=== PATIENT | female | born 1940 | race Caucasian/White ===

== ENCOUNTER 2018-12-29 05:34 | Inpatient (IN) ==
[~2018-12-29 05:34] MED LIST: GABAPENTIN 400 MG CAPSULE PO ONE
[2018-12-29] MEDS ORDERED: FAMOTIDINE 20 MG TABLET ONE (05:54)
[2018-12-29] MEDS ORDERED: VANCOMYCIN 1,000 MG VIAL ONE (05:54)
[2018-12-29] MEDS ORDERED: ACETAMINOPHEN 500 MG TABLET ONE (05:54)
[2018-12-29] MEDS ORDERED: GABAPENTIN 400 MG CAPSULE ONE (05:54)
[2018-12-29] MEDS ORDERED: ceFAZolin 1,000 MG VIAL ONE (05:54)
[2018-12-29] MEDS ORDERED: FAMOTIDINE 20 MG TABLET PO ONE (06:00)
[2018-12-29] MEDS ORDERED: GABAPENTIN 400 MG CAPSULE PO ONE (06:00)
[2018-12-29] MEDS ORDERED: ACETAMINOPHEN 500 MG TABLET PO ONE ×2 (06:00)
[2018-12-29] MEDS ORDERED: ROPIVACAINE 0.5% 30 ML VIAL ONE (06:33)
[2018-12-29] MEDS ORDERED: DEXAMETHASONE 4 MG/1 ML VIAL ONE (06:33)
[2018-12-29 06:35] LABS: Apearance,Urine CLEAR (Clear); Bacteria,Urine Occasional /HPF (Few); Bilirubin,Urine Negative (Negative); Blood, Urine Moderate mg/dL (Negative); Glucose,Urine (UA) Negative (Negative); Ketones,Urine Negative (Negative); Mucus,Urine Few /LPF (Occasional); Nitrite,Urine Negative (Negative); Protein,Urine Negative; RBC,Urine 1 /HPF (0-4); Urine Color Yellow (Yellow); Urine Specific Gravity 1.023 (1.001-1.035); Urine Urobilinogen < 2.0 EU/DL (0.2-1.0); WBC,Urine <1 /HPF (0-6)
[2018-12-29] MEDS ORDERED: LACTATED RINGERS 1,000 ML IV SCH (07:00)
[2018-12-29] MEDS ORDERED: NEOMYCIN/POLYMYXIN/BACITRACIN OINT 28.4 GM TUBE TOP ONE (07:33)
[2018-12-29] MEDS ORDERED: BUPIVACAINE SPINAL 0.75% 2 ML AMP SPINAL ONE (08:43)
[2018-12-29] MEDS ORDERED: PHENYLEPHRINE 1 MG/10 ML SYRINGE IV ONE (08:43)
[2018-12-29] MEDS ORDERED: PROPOFOL 200 MG/20 ML VIAL IV ONE (08:43)
[2018-12-29] MEDS ORDERED: TRANEXAMIC ACID 1,000 MG/10 ML VIAL ONE (08:43)
[2018-12-29] MEDS ORDERED: SODIUM CHLORIDE 0.9% 100 ML IV ONE (08:44)
[2018-12-29] MEDS ORDERED: Lansoprazole [Prevacid] 15 MG PO SCH (08:45)
[2018-12-29] MEDS ORDERED: oxyCODONE IR 5 MG TABLET PO PRN (08:50)
[2018-12-29] MEDS ORDERED: MAGNESIUM HYDROXIDE SUSP 30 ML UDCUP PO PRN (08:50)
[2018-12-29] MEDS ORDERED: MORPHINE 4 MG/1 ML VIAL IV PRN ×2 (08:50)
[2018-12-29] MEDS ORDERED: diphenhydrAMINE CAP 25 MG CAPSULE PO PRN (08:50)
[2018-12-29] MEDS ORDERED: ZALEPLON 5 MG CAPSULE PO PRN (08:50)
[2018-12-29] MEDS ORDERED: Bifidobacterium Infantis [Align] 4 MG PO SCH (09:00)
[2018-12-29] MEDS ORDERED: MEPERIDINE 25 MG/1 ML VIAL ONE (09:08)
[2018-12-29] MEDS ORDERED: ONDANSETRON 4 MG/2 ML VIAL IV PRN (09:11)
[2018-12-29] MEDS ORDERED: MEPERIDINE 25 MG/1 ML VIAL IV PRN (09:11)
[2018-12-29] MEDS ORDERED: ONDANSETRON 4 MG/2 ML VIAL ONE (09:22)
[2018-12-29] MEDS ORDERED: HYDROmorphone 2 MG/1 ML VIAL ONE (09:22)
[2018-12-29] MEDS: HYDROmorphone 2 MG/1 ML VIAL IV PRN ×4 (09:25→10:15)
[2018-12-29] MEDS: DOCUSATE SODIUM 100 MG CAPSULE PO SCH ×2 (13:22→20:36)
[2018-12-29] MEDS: FLUTICASONE 50 MCG NASAL SPRAY 16 GM BOTTLE BOTH NARES SCH (13:22)
[2018-12-29] MEDS: LEVOTHYROXINE 75 MCG TABLET PO SCH (13:23)
[2018-12-29] MEDS: ONDANSETRON 4 MG/2 ML VIAL IV PRN ×2 (14:00→23:13)
[2018-12-29] MEDS: ceFAZolin 1,000 MG in SYRINGE 1 EACH IV SCH ×2 (14:22→23:03)
[2018-12-29] MEDS: LACTATED RINGERS 1,000 ML IV SCH ×2 (15:36→20:37)
[2018-12-29] MEDS: ACETAMINOPHEN 500 MG TABLET PO SCH ×2 (15:37→20:36)
[2018-12-30] MEDS: LACTATED RINGERS 1,000 ML IV SCH ×4 (01:33→18:39)
[2018-12-30] MEDS: ONDANSETRON 4 MG/2 ML VIAL IV PRN ×5 (03:18→22:54)
[2018-12-30] MEDS: ACETAMINOPHEN 500 MG TABLET PO SCH ×2 (03:19→08:55)
[2018-12-30] MEDS: FONDAPARINUX 2.5 MG/0.5 ML SYRINGE SUBCUT SCH (03:22)
[2018-12-30 04:21] LABS: Basophils % 0.2 % (0.0-0.8); Hematocrit 33.6 VOL% (35.7-47.0); Hemoglobin 10.4 GM/DL (12.0-16.0); Immature Granulocytes % 0.5 %; Immature Granulocytes Absolute 0.06 #; Lymphocytes # 0.7 10*3/uL (1.4-4.0); Lymphocytes % 5.8 % (21.3-54.2); Mean Corpuscular Volume 96.8 FL (87-102); Mean Platelet Volume 10.6 FL (9.6-12.0); Monocytes % 8.8 % (1.7-12.7); Neutrophils % 84.7 % (38.7-73.9); Platelet Count 195 T/CUMM (130-400); Red Blood Count 3.47 MC/CUMM (3.8-5.5); Red Cell Distribution Width 12.5 % (9.3-17.3); White Blood Count 12.8 T/CUMM (4-12)
[2018-12-30 04:47] LABS: Calcium 8.3 MG/DL (8.5-10.1); Osmolality,Calculated 280.3 MOS/KG (273-304)
[2018-12-30] MEDS ORDERED: FAMOTIDINE 20 MG TABLET PO PRN (06:46)
[2018-12-30] MEDS ORDERED: LEVOTHYROXINE 50 MCG TABLET PO SCH (07:00)
[2018-12-30] MEDS ORDERED: ACETAMINOPHEN 500 MG TABLET ONE (08:54)
[2018-12-30] MEDS: PANTOPRAZOLE 40 MG TABLET PO SCH (08:55)
[2018-12-30] MEDS: DOCUSATE SODIUM 100 MG CAPSULE PO SCH ×2 (08:56→20:54)
[2018-12-30] MEDS: FLUTICASONE 50 MCG NASAL SPRAY 16 GM BOTTLE BOTH NARES SCH (08:59)
[2018-12-30] MEDS: POTASSIUM CHLORIDE 8 MEQ CAPSULE PO SCH (09:16)
[2018-12-30] MEDS: oxyCODONE IR 5 MG TABLET PO PRN ×3 (14:46→22:53)
[2018-12-31] MEDS: FONDAPARINUX 2.5 MG/0.5 ML SYRINGE SUBCUT SCH (02:06)
[2018-12-31] MEDS: oxyCODONE IR 5 MG TABLET PO PRN ×2 (04:24→08:47)
[2018-12-31] MEDS: ONDANSETRON 4 MG/2 ML VIAL IV PRN ×2 (04:25→08:48)
[2018-12-31] MEDS: LACTATED RINGERS 1,000 ML IV SCH (05:06)
[2018-12-31 05:36] LABS: Basophils % 0.1 % (0.0-0.8); Eosinophils % 0.1 % (0.00-10.9); Hematocrit 31.3 VOL% (35.7-47.0); Immature Granulocytes % 0.5 %; Immature Granulocytes Absolute 0.05 #; Lymphocytes # 1.3 10*3/uL (1.4-4.0); Lymphocytes % 13.1 % (21.3-54.2); Mean Corpuscular HGB Conc 31.9 GM/DL (32-36); Mean Platelet Volume 10.7 FL (9.6-12.0); Monocytes % 9.9 % (1.7-12.7); Neutrophils % 76.3 % (38.7-73.9); Platelet Count 174 T/CUMM (130-400); Red Blood Count 3.26 MC/CUMM (3.8-5.5); Red Cell Distribution Width 12.7 % (9.3-17.3); White Blood Count 10.1 T/CUMM (4-12)
[2018-12-31 06:05] LABS: Calcium 8.5 MG/DL (8.5-10.1); Osmolality,Calculated 275.4 MOS/KG (273-304)
[2018-12-31] MEDS: LEVOTHYROXINE 75 MCG TABLET PO SCH (06:25)
[2018-12-31] MEDS: POTASSIUM CHLORIDE 8 MEQ CAPSULE PO SCH (08:47)
[2018-12-31] MEDS: PANTOPRAZOLE 40 MG TABLET PO SCH (08:47)
[2018-12-31] MEDS: DOCUSATE SODIUM 100 MG CAPSULE PO SCH (08:47)
[2018-12-31] MEDS: FLUTICASONE 50 MCG NASAL SPRAY 16 GM BOTTLE BOTH NARES SCH (10:14)
[2018-12-31 12:05] VITALS: BP 121/85
== END 2018-12-31 14:05 | disposition home health service (06) | DRG 470 ==
LOC: N.SDSINP 05:34 → N.OR 05:34 → N.SDSINP 05:35 → N.3E 13:06
PROVIDERS: ADMIT Orthopaedic Surgery; ATTEND Orthopaedic Surgery